=== PATIENT | female | born 1990 | race Caucasian/White ===

== ENCOUNTER → 2016-04-19 | Outpatient (CLI) | payer OTHER ==
[2016-04-19 11:22] LABS: MEAN CORPUSCULAR HEMOGLOBIN 28.4 pg (27.0-33.0); MEAN CORPUSCULAR HGB CONC 33.9 g/dl (32.0-36.5); MEAN CORPUSCULAR VOLUME 83.9 fl (80.0-96.0); RED CELL DISTRIBUTION WIDTH 13.7 % (11.5-14.5)
[2016-04-19 12:10] LABS: ERYTHROCYTE SEDIMENTATION RATE 11 mm/hr (0-20)
[2016-04-19 12:46] LABS: BANDS 1 % (< 11); EOSINOPHILS 1 % (0-5)
== END | disposition home or self-care (01) ==
LOC: M WUC 10:13
PROVIDERS: ATTEND Physician Assistant
DX: I88.9 Nonspecific lymphadenitis, unspecified (principal)

== ENCOUNTER 2016-05-18 13:53 | Emergency (ER) | payer OTHER ==
[2016-05-18 15:16] LABS: MEAN CORPUSCULAR HEMOGLOBIN 28.7 pg (27.0-33.0); MEAN CORPUSCULAR HGB CONC 34.4 g/dl (32.0-36.5); MEAN CORPUSCULAR VOLUME 83.6 fl (80.0-96.0); RED CELL DISTRIBUTION WIDTH 12.4 % (11.5-14.5); WHITE BLOOD COUNT 14.8 K/mm3 (4.0-10.0)
--- NOTE | 2016-05-18 16:15 | REP ---
OB ULTRASOUND: Real-time sonographic evaluation of the gravid uterus is performed utilizing transabdominal technique. There is a single living intrauterine gestation. Estimated gestational age 16 weeks 3 days, EDC 10/30/2016. Today's measurements indicate appropriate growth. BPD 35 mm = 16 weeks 5 days, 61st percentile. HC 130 mm = 16 weeks 4 days, 59th percentile AC 111 mm = 16 weeks 6 days, 64th percentile FL 22 mm = 16 weeks 4 days, 56th percentile HC/AC ratio 1.17, within normal range. Estimated weight 168 grams, at the 59th percentile. Cervix is closed and measures 3.1 cm in length. heart rate 163 beats per minute. Right choroid plexus cyst is noted. stomach, cord insertion, three vessel cord and kidneys are visualized and are grossly unremarkable. position breech. Placenta is anterior and grade 0 with no previa or abruption. Amniotic fluid within normal limits. Signed by Kumar Orta MD 05/19/2016 06:28 P
--- NOTE | 2016-05-18 17:31 | EDDOCDS ---
Physician Documentation [facility] Name: Sharda Monreal Age: 26 yrs Sex: Female : 1990 Arrival Date: 05/18/2016 Time: 13:53 Bed PR Private MD: NO PRIMARY PHYSICIAN, . Disposition: 05/18/16 16:57 Discharged to Home/Self Care. Impression: Threatened , Unspecified infection of urinary tract in . - Condition is Stable. - Discharge Instructions: Threatened Miscarriage, Urinary Tract Infection, Pelvic Rest. - Prescriptions for Macrobid 100 mg Oral Capsule - take 100 milligram by ORAL route every 12 hours for 10 days; 20 capsule. Zofran 4 mg Oral Tablet - take 1 tablet by ORAL route 4 times per day As needed; 10 tablet. - Medication Reconciliation, Local Pharmacy Hours form. - Follow up: Dhruv Peña MD; When: 2 - 3 days; Reason: Recheck today's complaints, Continuance of care. - Problem is new. - Symptoms have improved. Historical: - Allergies: SULFA (SULFONAMIDES); - Home Meds: 1. Vitamin Oral tab 1 tab once daily 2. lorazepam 0.5 mg Oral tab as needed (Last dose: 05/16/2016) - PMHx: Panic Attacks; arthritis in neck; Endometriosis; - PSHx: Laparoscopy; - Social history: Smoking status: Patient states former smoker of tobacco. No barriers to communication noted, The patient speaks fluent Tongan, Speaks appropriately for age. - Family history: Not pertinent. - : The pt / caregiver states he / she is not on anticoagulants. Home medication list is obtained from the patient. - Exposure Risk Screening:: None identified. RELAY ASSOCIATE: 05/18 14:08 LMP 01/24/2016 jo3 Vital Signs: 13:56 BP 139 / 75; Pulse 101; Resp 17; Temp 96.5(O); Pulse Ox 99% on R/A; Weight 54.43 kg / lr2 120 lbs (R); Height 5 ft. 2 in. (157.48 cm) (R); Pain 5/10; 17:26 BP 128 / 84; Pulse 108; Resp 18; Temp 98(T); Pulse Ox 99% on R/A; jb5 13:56 Body Mass Index 21.95 (54.43 kg, 157.48 cm) lr2 MDM: 14:50 Heart Tones ordered. ke 14:50 Undress patient appropriately for examination ordered. ke 14:51 Type & Screen Ordered. EDMS 14:52 Complete Blood Count Ordered. EDMS 14:52 Hcg, Serum Quantitative Ordered. EDMS 14:52 Urinalysis Ordered. EDMS 14:52 Urine Culture Ordered. EDMS 14:57 US OBS SINGEL GEST Ordered. EDMS 16:29 Complete Blood Count Reviewed. ke 16:29 Urinalysis Reviewed. ke 16:29 Hcg, Serum Quantitative Reviewed. ke 16:29 Type & Screen Reviewed. ke 16:42 -RhoGAM Ultra-Filtered Plus 300 mcg IM once ordered. ke 16:42 Draw Rhogam Ordered. EDMS Administered Medications: 17:15 Drug: -RhoGAM Ultra-Filtered Plus 300 mcg [RhoGAM Ultra-Filtered PLUS 1,500 unit (300 jo3 mcg) intramuscular syringe (300 mcg)] Route: IM; Site: left gluteus; Signatures: Dispatcher [employer] EDVincent Vazquez, ER RN ER RN Yumiko OhRN RN ck1 Bela SrinivasanRN RN jo3 The chart was reviewed and I authenticate all verbal orders and agree with the evaluation and treatment provided.Corrections: (The following items were deleted from the chart) 14:57 14:52 1ST TRIMESTER US+US ordered. EDMS EDMS MTDD
--- NOTE | 2016-05-18 17:31 | EDDOCDS ---
Nurse's Notes [facility] Name: Sharda Monreal Age: 26 yrs Sex: Female : 1990 Arrival Date: 05/18/2016 Time: 13:53 Bed PR Private MD: NO PRIMARY PHYSICIAN, . Diagnosis: Threatened ;Unspecified infection of urinary tract in Presentation: 05/18 14:04 Presenting complaint: Patient states: Sharp back pain and some lower abdominal pain jo3 with some light spotting last night that has now resolved. Pt is 16 weeks . Acute neurological deficits are not present. Mechanism of Injury: No Mechanism of Injury. Adult Sepsis Screening: The patient does not have new or worsening altered mentation. Patient's respiratory rate is less than 22. Systolic blood pressure is greater than 100. Patient has a qSOFA score of 0- Negative Sepsis Screen. Suicide/Homicide risk assessment- the patient denies having any suicidal and/or homicidal ideations and does not present with any other emotional, behavioral or mental health complaints. Status: The patient is a dependent. Transition of care: patient was not received from another setting of care. 14:04 Acuity: KARTIK Level 3 jo3 14:04 Method Of Arrival: Walkin/Carried/Asstd jo3 Triage Assessment: 14:08 General: Appears in no apparent distress, comfortable, Behavior is appropriate for age, jo3 cooperative. Pain: Pain currently is 4 out of 10 on a pain scale. At worst was 7 out of 10 on a pain scale. HIV screening NA for this visit Offered previously. Neurological: Level of Consciousness is awake, alert, Oriented to person, place, time. Respiratory: Airway is patent Respiratory effort is even, unlabored. BEEF PUSHER: 14:08 LMP 01/24/2016 jo3 Historical: - Allergies: SULFA (SULFONAMIDES); - Home Meds: 1. Vitamin Oral tab 1 tab once daily 2. lorazepam 0.5 mg Oral tab as needed (Last dose: 05/16/2016) - PMHx: Panic Attacks; arthritis in neck; Endometriosis; - PSHx: Laparoscopy; - Social history: Smoking status: Patient states former smoker of tobacco. No barriers to communication noted, The patient speaks fluent Upper Sorbian, Speaks appropriately for age. - Family history: Not pertinent. - : The pt / caregiver states he / she is not on anticoagulants. Home medication list is obtained from the patient. - Exposure Risk Screening:: None identified. Screenin:28 Screening information is obtained from the patient. Fall risk: No risks identified. ck1 Assistance ADL's: requires no assistance with activities of daily living. Abuse/DV Screen: The patient / caregiver reports he/she is: not in a situation that causes fear, pain or injury. Nutritional screening: No deficits noted. Advance Directives: Currently, there is no health care proxy. home support is adequate. Assessment: 17:29 General: Appears distressed, Behavior is crying. Pain: Location: left lower quadrant ck1 Pain currently is 7 out of 10 on a pain scale. Neurological: Level of Consciousness is awake, alert, obeys commands, Oriented to person, place, time. : Denies vaginal bleeding. Derm: Skin is intact, is healthy with good turgor, Skin is pink, warm & dry. Musculoskeletal: Circulation, motion, and sensation intact Range of motion intact in all extremities. Vital Signs: 13:56 BP 139 / 75; Pulse 101; Resp 17; Temp 96.5(O); Pulse Ox 99% on R/A; Weight 54.43 kg lr2 (R); Height 5 ft. 2 in. (157.48 cm) (R); Pain 5/10; 17:26 BP 128 / 84; Pulse 108; Resp 18; Temp 98(T); Pulse Ox 99% on R/A; jb5 13:56 Body Mass Index 21.95 (54.43 kg, 157.48 cm) lr2 Vitals: 13:56 Log In Time: May 18, 2016 at 13:55. lr2 ED Course: 13:55 Patient visited by Lisa Mclain. lr2 13:55 NO PRIMARY PHYSICIAN, . is Private Physician. lr2 13:55 Patient moved to Waiting lr2 13:55 Patient moved to Pre RCE lr2 14:06 Triage Initiated jo3 14:09 Patient visited by Bela Srinivasan RN. jo3 14:21 Patient visited by Raegan Nolan PCA. jb5 14:21 Patient moved to Triage 1 jb5 14:40 [facility] Brown FNP [facility]. ke 14:41 Patient visited by Vincent Brown FNP. ke 14:41 Patient visited by Vincent Brown FNP. ke 15:05 Complete Blood Count Sent. jo3 15:05 Hcg, Serum Quantitative Sent. jo3 15:05 Type & Screen Sent. jo3 15:05 Urinalysis Sent. jo3 15:05 Urine Culture Sent. jo3 15:08 Patient moved to TR1 jb5 15:11 Patient visited by Raegan Nolan PCA. jb5 15:20 Patient moved to Ultrasound am10 15:38 Patient moved to TR1 am10 15:46 Patient visited by Vincent Brown FNP. ke 16:15 Patient visited by Vincent Brown FNP. ke 16:31 US OBS SINGEL GEST Returned. EDMS 16:41 Patient visited by Vincent Brown FNP. ke 16:44 Patient moved to PR / jo3 16:44 Draw Rhogam Sent. jo3 16:56 Dhruv Peña MD is Referral Physician. ke 17:26 Patient visited by Raegan Nolan PCA. jb5 17:28 The patient / caregiver is instructed regarding the plan of care and ED course. ck1 17:29 No IV's were initiated during this patient's visit. No procedures done that require ck1 assistance. Administered Medications: 17:15 Drug: -RhoGAM Ultra-Filtered Plus 300 mcg [RhoGAM Ultra-Filtered PLUS 1,500 unit (300 jo3 mcg) intramuscular syringe (300 mcg)] Route: IM; Site: left gluteus; Order Results: Lab Order: Complete Blood Count; SPEC'M 05/18/16 15:04 Test: WHITE BLOOD COUNT; Value: 14.8; Range: 4.0-10.0; Abnormal: Above high normal; Units: K/mm3; Status: F Test: RED BLOOD COUNT; Value: 4.34; Range: 4.00-5.40; Units: M/mm3; Status: F Test: HEMOGLOBIN; Value: 12.5; Range: 12.0-16.0; Units: g/dl; Status: F Test: HEMATOCRIT; Value: 36.3; Range: 36.0-47.0; Units: %; Status: F Test: MEAN CORPUSCULAR VOLUME; Value: 83.6; Range: 80.0-96.0; Units: fl; Status: F Test: MEAN CORPUSCULAR HEMOGLOBIN; Value: 28.7; Range: 27.0-33.0; Units: pg; Status: F Test: MEAN CORPUSCULAR HGB CONC; Value: 34.4; Range: 32.0-36.5; Units: g/dl; Status: F Test: RED CELL DISTRIBUTION WIDTH; Value: 12.4; Range: 11.5-14.5; Units: %; Status: F Test: PLATELET COUNT, AUTOMATED; Value: 199; Range: 150-450; Units: k/mm3; Status: F Lab Order: Hcg, Serum Quantitative; [facility] 05/18/16 15:04 Test: HCG, SERUM QUANTITATIVE; Value: 39202; Units: MIU/ML; Status: F Test Note: ; GESTATIONAL AGE APPROXIMATE HCG RANGE (MIU/ML) 0.2-1 WEEK 5-50 1-2 WEEKS 50-500 2-3 WEEKS 100-5,000 3-4 WEEKS 500-10,000 4-5 WEEKS 1,000-50,000 5-6 WEEKS 10,000-100,000 6-8 WEEKS 15,000-200,000 2-3 MONTHS 10,000-100,000 NON FEMALES LESS THAN 3.0 Patient samples may contain human heterophilic antibodies that could react with immunoassays to give falsely elevated or depressed results. This assay has been designed to minimize interference from heterophilic antibodies. Elevated hCG levels have also been associated with trophoblastic disease and nontrophoblastic neoplasms. The possibility of having these diseases should be considered before a diagnosis of is made. This test is not intended for use as a surrogate marker for aiding in the diagnosis or monitoring the treatment of cancer patients. Siemens Phoenix methodology. Lab Order: Type & Screen; [facility] 05/18/16 15:04 Test: BLOOD TYPE; Value: O NEG; Status: F Test: AB SCREEN (INDIRECT BENEDICTO)VIS; Value: NEGATIVE; Status: F Lab Order: Urinalysis; [facility] 05/18/16 14:54 Test: APPEARANCE, URINE; Value: CLEAR; Range: CLEAR; Status: F Test: COLOR, URINE; Value: YELLOW; Range: YELLOW; Status: F Test: PH,URINE; Value: 6.0; Range: 5.0-9.0; Units: UNITS; Status: F Test: SPECIFIC GRAVITY URINE AUTO; Value: 1.004; Range: 1.002-1.035; Status: F Test: PROTEIN, URINE AUTO; Value: NEGATIVE; Range: NEGATIVE; Units: mg/dL; Status: F Test: GLUCOSE, URINE (UA) AUTO; Value: NEGATIVE; Range: NEGATIVE; Units: mg/dL; Status: F Test: KETONE, URINE AUTO; Value: NEGATIVE; Range: NEGATIVE; Units: mg/dL; Status: F Test: UROBILINOGEN, URINE AUTO; Value: 0.2; Range: 0.0-2.0; Units: mg/dL; Status: F Test: BILIRUBIN, URINE AUTO; Value: NEGATIVE; Range: NEGATIVE; Status: F Test: NITRITE, URINE AUTO; Value: POSITIVE; Range: NEGATIVE; Status: F Test: LEUKOCYTE ESTERASE, URINE AUTO; Value: NEGATIVE; Range: NEGATIVE; Status: F Test: BLOOD, URINE BLOOD; Value: NEGATIVE; Range: NEGATIVE; Status: F Test: WBC, URINE AUTO; Value: 5; Range: 0-3; Abnormal: Above high normal; Units: /HPF; Status: F Test: RBC, URINE AUTO; Value: 3; Range: 0-3; Units: /HPF; Status: F Test: BACTERIA, URINE AUTO; Value: 3+; Range: NEGATIVE; Abnormal: Above high normal; Status: F Test: SQUAMOUS EPITHELIAL CELL UR AU; Value: 0; Range: 0-6; Units: /HPF; Status: F Test: MUCUS, URINE; Value: SMALL; Range: NEGATIVE; Status: F Test: HYALINE CAST, URINE AUTO; Value: 0; Range: 0-1; Units: /LPF; Status: F Radiology Order: US OBS SINGEL GEST Test: US OBS SINGEL GEST REASON FOR EXAMINATION: Bleeding; OB ULTRASOUND:; ; Real-time sonographic evaluation of the gravid uterus is performed utilizing; transabdominal technique.; ; There is a single living intrauterine gestation. Estimated gestational age 16; weeks 3 days, EDC 10/30/2016. Today's measurements indicate appropriate growth.; ; BPD 35 mm = 16 weeks 5 days, 61st percentile.; HC 130 mm = 16 weeks 4 days, 59th percentile; AC 111 mm = 16 weeks 6 days, 64th percentile; FL 22 mm = 16 weeks 4 days, 56th percentile; ; HC/AC ratio 1.17, within normal range. Estimated weight 168 grams, at the; 59th percentile. Cervix is closed and measures 3.1 cm in length. heart rate; 163 beats per minute. Right choroid plexus cyst is noted. stomach, cord; insertion, three vessel cord and kidneys are visualized and are grossly; unremarkable. position breech. Placenta is anterior and grade 0 with no; previa or abruption. Amniotic fluid within normal limits.; ; ; ; Unreviewed; Outcome: 16:57 Discharge ordered by Provider. 17:28 Discharge Assessment: Patient awake, alert and oriented x 3. No cognitive and/or ck1 functional deficits noted. Patient verbalized understanding of disposition instructions. patient administered narcotics - no. The following High Risk Discharge criteria are identified: None. Discharged to home ambulatory. Condition: stable. Discharge instructions given to patient, Instructed on discharge instructions, follow up and referral plans. medication usage, Demonstrated understanding of instructions, medications, Pt was receptive of discharge instructions/ teaching. Prescriptions given X 2. Ultrasound Study completed. Property :Personal belongings accompany Pt. 17:29 Patient left the ED. ck1 Signatures: Dispatcher [employer] EDMS Vincent Brown, DETECTIVE CHIEF DETECTIVE CHIEF Yumiko OhRN RN ck1 Raegan Nolan, [employer] SENIOR PARTNER jb5 Bela SrinivasanRN RN neetu3 Alecia Rojo Laura lr2 MTDD
--- NOTE | 2016-05-20 18:31 | EDDOCDS ---
Nurse's Notes [facility] Name: Sharda Monreal Age: 26 yrs Sex: Female : 1990 Arrival Date: 05/18/2016 Time: 13:53 Bed PR Private MD: NO PRIMARY PHYSICIAN, . Diagnosis: Threatened ;Unspecified infection of urinary tract in Presentation: 05/18 14:04 Presenting complaint: Patient states: Sharp back pain and some lower abdominal pain jo3 with some light spotting last night that has now resolved. Pt is 16 weeks . Acute neurological deficits are not present. Mechanism of Injury: No Mechanism of Injury. Adult Sepsis Screening: The patient does not have new or worsening altered mentation. Patient's respiratory rate is less than 22. Systolic blood pressure is greater than 100. Patient has a qSOFA score of 0- Negative Sepsis Screen. Suicide/Homicide risk assessment- the patient denies having any suicidal and/or homicidal ideations and does not present with any other emotional, behavioral or mental health complaints. Status: The patient is a dependent. Transition of care: patient was not received from another setting of care. 14:04 Acuity: KARTIK Level 3 jo3 14:04 Method Of Arrival: Walkin/Carried/Asstd jo3 Triage Assessment: 14:08 General: Appears in no apparent distress, comfortable, Behavior is appropriate for age, jo3 cooperative. Pain: Pain currently is 4 out of 10 on a pain scale. At worst was 7 out of 10 on a pain scale. HIV screening NA for this visit Offered previously. Neurological: Level of Consciousness is awake, alert, Oriented to person, place, time. Respiratory: Airway is patent Respiratory effort is even, unlabored. 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 Vitamin Oral tab 1 tab once daily 2. lorazepam 0.5 mg Oral tab as needed (Last dose: 05/16/2016) - PMHx: Panic Attacks; arthritis in neck; Endometriosis; - PSHx: Laparoscopy; - Social history: Smoking status: Patient states former smoker of tobacco. No barriers to communication noted, The patient speaks fluent Kazakh, Speaks appropriately for age. - Family history: Not pertinent. - : The pt / caregiver states he / she is not on anticoagulants. Home medication list is obtained from the patient. - Exposure Risk Screening:: None identified. Screenin:28 Screening information is obtained from the patient. Fall risk: No risks identified. ck1 Assistance ADL's: requires no assistance with activities of daily living. Abuse/DV Screen: The patient / caregiver reports he/she is: not in a situation that causes fear, pain or injury. Nutritional screening: No deficits noted. Advance Directives: Currently, there is no health care proxy. home support is adequate. Assessment: 17:29 General: Appears distressed, Behavior is crying. Pain: Location: left lower quadrant ck1 Pain currently is 7 out of 10 on a pain scale. Neurological: Level of Consciousness is awake, alert, obeys commands, Oriented to person, place, time. : Denies vaginal bleeding. Derm: Skin is intact, is healthy with good turgor, Skin is pink, warm & dry. Musculoskeletal: Circulation, motion, and sensation intact Range of motion intact in all extremities. Vital Signs: 13:56 BP 139 / 75; Pulse 101; Resp 17; Temp 96.5(O); Pulse Ox 99% on R/A; Weight 54.43 kg lr2 (R); Height 5 ft. 2 in. (157.48 cm) (R); Pain 5/10; 17:26 BP 128 / 84; Pulse 108; Resp 18; Temp 98(T); Pulse Ox 99% on R/A; jb5 13:56 Body Mass Index 21.95 (54.43 kg, 157.48 cm) lr2 Vitals: 13:56 Log In Time: May 18, 2016 at 13:55. lr2 ED Course: 13:55 Patient visited by Lisa Mclain. lr2 13:55 NO PRIMARY PHYSICIAN, . is Private Physician. lr2 13:55 Patient moved to Waiting lr2 13:55 Patient moved to Pre RCE lr2 14:06 Triage Initiated jo3 14:09 Patient visited by Bela Srinivasan RN. jo3 14:21 Patient visited by Raegan Nolan PCA. jb5 14:21 Patient moved to Triage 1 jb5 14:40 [facility] FNP is [facility]. ke 14:41 Patient visited by Vincent Brown FNP. ke 14:41 Patient visited by Vincent Brown FNP. ke 15:05 Complete Blood Count Sent. jo3 15:05 Hcg, Serum Quantitative Sent. jo3 15:05 Type & Screen Sent. jo3 15:05 Urinalysis Sent. jo3 15:05 Urine Culture Sent. jo3 15:08 Patient moved to TR1 jb5 15:11 Patient visited by Raegan Nolan PCA. jb5 15:20 Patient moved to Ultrasound am10 15:38 Patient moved to TR1 am10 15:46 Patient visited by Vincent Brown FNP. ke 16:15 Patient visited by Vincent Brown FNP. ke 16:31 US OBS SINGJORGE GEST Returned. EDMS 16:41 Patient visited by Vincent Brwon FNP. ke 16:44 Patient moved to PR / jo3 16:44 Draw Rhogam Sent. jo3 16:56 Dhruv Peña MD is Referral Physician. ke 17:26 Patient visited by Raegan Nolan PCA. jb5 17:28 The patient / caregiver is instructed regarding the plan of care and ED course. ck1 17:29 No IV's were initiated during this patient's visit. No procedures done that require ck1 assistance. 05/19 10:16 T-Sheet-- Draft Copy was scanned into [employer] and attached to record. gb Administered Medications: 05/18 17:15 Drug: -RhoGAM Ultra-Filtered Plus 300 mcg [RhoGAM Ultra-Filtered PLUS 1,500 unit (300 jo3 mcg) intramuscular syringe (300 mcg)] Route: IM; Site: left gluteus; Order Results: Lab Order: Complete Blood Count; SPEC'M 05/18/16 15:04 Test: WHITE BLOOD COUNT; Value: 14.8; Range: 4.0-10.0; Abnormal: Above high normal; Units: K/mm3; Status: F Test: RED BLOOD COUNT; Value: 4.34; Range: 4.00-5.40; Units: M/mm3; Status: F Test: HEMOGLOBIN; Value: 12.5; Range: 12.0-16.0; Units: g/dl; Status: F Test: HEMATOCRIT; Value: 36.3; Range: 36.0-47.0; Units: %; Status: F Test: MEAN CORPUSCULAR VOLUME; Value: 83.6; Range: 80.0-96.0; Units: fl; Status: F Test: MEAN CORPUSCULAR HEMOGLOBIN; Value: 28.7; Range: 27.0-33.0; Units: pg; Status: F Test: MEAN CORPUSCULAR HGB CONC; Value: 34.4; Range: 32.0-36.5; Units: g/dl; Status: F Test: RED CELL DISTRIBUTION WIDTH; Value: 12.4; Range: 11.5-14.5; Units: %; Status: F Test: PLATELET COUNT, AUTOMATED; Value: 199; Range: 150-450; Units: k/mm3; Status: F Lab Order: Hcg, Serum Quantitative; SPEC' 05/18/16 15:04 Test: HCG, SERUM QUANTITATIVE; Value: [id number]; Units: MIU/ML; Status: F Test Note: ; GESTATIONAL AGE APPROXIMATE HCG RANGE (MIU/ML) 0.2-1 WEEK 5-50 1-2 WEEKS 50-500 2-3 WEEKS 100-5,000 3-4 WEEKS 500-10,000 4-5 WEEKS 1,000-50,000 5-6 WEEKS 10,000-100,000 6-8 WEEKS 15,000-200,000 2-3 MONTHS 10,000-100,000 NON FEMALES LESS THAN 3.0 Patient samples may contain human heterophilic antibodies that could react with immunoassays to give falsely elevated or depressed results. This assay has been designed to minimize interference from heterophilic antibodies. Elevated hCG levels have also been associated with trophoblastic disease and nontrophoblastic neoplasms. The possibility of having these diseases should be considered before a diagnosis of is made. This test is not intended for use as a surrogate marker for aiding in the diagnosis or monitoring the treatment of cancer patients. [employer] methodology. Lab Order: Type & Screen; SPEC 05/18/16 15:04 Test: BLOOD TYPE; Value: O NEG; Status: F Test: AB SCREEN (INDIRECT BENEDICTO)VIS; Value: NEGATIVE; Status: F Lab Order: Urinalysis; [facility]' 05/18/16 14:54 Test: APPEARANCE, URINE; Value: CLEAR; Range: CLEAR; Status: F Test: COLOR, URINE; Value: YELLOW; Range: YELLOW; Status: F Test: PH,URINE; Value: 6.0; Range: 5.0-9.0; Units: UNITS; Status: F Test: SPECIFIC GRAVITY URINE AUTO; Value: 1.004; Range: 1.002-1.035; Status: F Test: PROTEIN, URINE AUTO; Value: NEGATIVE; Range: NEGATIVE; Units: mg/dL; Status: F Test: GLUCOSE, URINE (UA) AUTO; Value: NEGATIVE; Range: NEGATIVE; Units: mg/dL; Status: F Test: KETONE, URINE AUTO; Value: NEGATIVE; Range: NEGATIVE; Units: mg/dL; Status: F Test: UROBILINOGEN, URINE AUTO; Value: 0.2; Range: 0.0-2.0; Units: mg/dL; Status: F Test: BILIRUBIN, URINE AUTO; Value: NEGATIVE; Range: NEGATIVE; Status: F Test: NITRITE, URINE AUTO; Value: POSITIVE; Range: NEGATIVE; Status: F Test: LEUKOCYTE ESTERASE, URINE AUTO; Value: NEGATIVE; Range: NEGATIVE; Status: F Test: BLOOD, URINE BLOOD; Value: NEGATIVE; Range: NEGATIVE; Status: F Test: WBC, URINE AUTO; Value: 5; Range: 0-3; Abnormal: Above high normal; Units: /HPF; Status: F Test: RBC, URINE AUTO; Value: 3; Range: 0-3; Units: /HPF; Status: F Test: BACTERIA, URINE AUTO; Value: 3+; Range: NEGATIVE; Abnormal: Above high normal; Status: F Test: SQUAMOUS EPITHELIAL CELL UR AU; Value: 0; Range: 0-6; Units: /HPF; Status: F Test: MUCUS, URINE; Value: SMALL; Range: NEGATIVE; Status: F Test: HYALINE CAST, URINE AUTO; Value: 0; Range: 0-1; Units: /LPF; Status: F Lab Order: Urine Culture; SPEC'M 05/18/16 14:54 Test: URINE CULTURE; Value: <EXTERNAL COMMENT eCWMed> FULL REPORT IN LAB NOTES (eCW and Medent).; Status: F Test: URINE CULTURE; Value: ORGANISM 1: ESCHERICHIA COLI; Status: F Test: URINE CULTURE; Value: ESCHERICHIA COLI; Status: F Test: URINE CULTURE; Value: COLONY COUNT CFU/ml >100,000; Status: F Test: URINE CULTURE; Value: GRAM NEG SENSI - VITEK 80; Status: F Test: URINE CULTURE; Value: Method: VIT2; Status: F Test: URINE CULTURE; Value: EXTD BRD SPCTRM BETA LACTAMASE -; Status: F Test: URINE CULTURE; Value: TRIMETHOPRIM/SULFAMETHOXAZOLE >=320 R; Status: F Test: URINE CULTURE; Value: AMPICILLIN 8 S; Status: F Test: URINE CULTURE; Value: GENTAMICIN <=1 S; Status: F Test: URINE CULTURE; Value: NITROFURANTOIN <=16 S; Status: F Test: URINE CULTURE; Value: CEFAZOLIN <=4 S; Status: F Test: URINE CULTURE; Value: LEVOFLOXACIN >=8 R; Status: F Test: URINE CULTURE; Value: TOBRAMYCIN <=1 S; Status: F Test: URINE CULTURE; Value: CEFTRIAXONE <=1 S; Status: F Test: URINE CULTURE; Value: CEFTAZIDIME <=1 S; Status: F Test: URINE CULTURE; Value: AMPICILLIN/SULBACTAM 4 S; Status: F Test: URINE CULTURE; Value: PIPERACILLIN/TAZOBACTAM <=4 S; Status: F Test: URINE CULTURE; Value: AZTREONAM <=1 S; Status: F Test: URINE CULTURE; Value: ERTAPENEM <=0.5 S; Status: F Test: URINE CULTURE; Value: MEROPENEM <=0.25 S; Status: F Test: URINE CULTURE; Value: TIGECYCLINE <=0.5 S; Status: F Test: URINE CULTURE; Value: CEFEPIME <=1 S; Status: F Radiology Order: US OBS SINGEL GEST Test: US OBS SINGEL GEST REASON FOR EXAMINATION: Bleeding; OB ULTRASOUND:; ; Real-time sonographic evaluation of the gravid uterus is performed utilizing; transabdominal technique.; ; There is a single living intrauterine gestation. Estimated gestational age 16; weeks 3 days, EDC 10/30/2016. Today's measurements indicate appropriate growth.; ; BPD 35 mm = 16 weeks 5 days, 61st percentile.; ; HC 130 mm = 16 weeks 4 days, 59th percentile; ; AC 111 mm = 16 weeks 6 days, 64th percentile; ; FL 22 mm = 16 weeks 4 days, 56th percentile; ; HC/AC ratio 1.17, within normal range. Estimated weight 168 grams, at the; 59th percentile. Cervix is closed and measures 3.1 cm in length. heart rate; 163 beats per minute. Right choroid plexus cyst is noted. stomach, cord; insertion, three vessel cord and kidneys are visualized and are grossly; unremarkable. position breech. Placenta is anterior and grade 0 with no; previa or abruption. Amniotic fluid within normal limits.; ; ; Signed by; Kumar Orta MD 05/19/2016 06:28 P; Outcome: 16:57 Discharge ordered by Provider. 17:28 Discharge Assessment: Patient awake, alert and oriented x 3. No cognitive and/or ck1 functional deficits noted. Patient verbalized understanding of disposition instructions. patient administered narcotics - no. The following High Risk Discharge criteria are identified: None. Discharged to home ambulatory. Condition: stable. Discharge instructions given to patient, Instructed on discharge instructions, follow up and referral plans. medication usage, Demonstrated understanding of instructions, medications, Pt was receptive of discharge instructions/ teaching. Prescriptions given X 2. Ultrasound Study completed. Property :Personal belongings accompany Pt. 17:29 Patient left the ED. ck05/20 10:13 urine culture reviewed, pt treated appropriately.:. [facility] Signatures: Dispatcher [employer] EDMS Kati Lucas, RN RN Leola Baxter, Reg Reg Vincent Summers, DELIVERER OUTSIDE DELIVERER OUTSIDE Yumiko Oh RN RN ck1 Raegan Nolan, CAREER AND TRANSITION TEACHER CAREER AND TRANSITION TEACHER alivia5 Bela Srinivasan RN RN Alecia Zhao Laura lr2 Chart Complete MTDD
--- NOTE | 2016-05-20 18:31 | EDDOCDS ---
Physician Documentation [facility] Name: Sharda Monreal Age: 26 yrs Sex: Female : 1990 Arrival Date: 05/18/2016 Time: 13:53 Bed PR Private MD: NO PRIMARY PHYSICIAN, . Disposition: 05/18/16 16:57 Discharged to Home/Self Care. Impression: Threatened , Unspecified infection of urinary tract in . - Condition is Stable. - Discharge Instructions: Threatened Miscarriage, Urinary Tract Infection, Pelvic Rest. - Prescriptions for Macrobid 100 mg Oral Capsule - take 100 milligram by ORAL route every 12 hours for 10 days; 20 capsule. Zofran 4 mg Oral Tablet - take 1 tablet by ORAL route 4 times per day As needed; 10 tablet. - Medication Reconciliation, Local Pharmacy Hours form. - Follow up: Dhruv Peña MD; When: 2 - 3 days; Reason: Recheck today's complaints, Continuance of care. - Problem is new. - Symptoms have improved. Historical: - Allergies: SULFA (SULFONAMIDES); - Home Meds: 1. Vitamin Oral tab 1 tab once daily 2. lorazepam 0.5 mg Oral tab as needed (Last dose: 05/16/2016) - PMHx: Panic Attacks; arthritis in neck; Endometriosis; - PSHx: Laparoscopy; - Social history: Smoking status: Patient states former smoker of tobacco. No barriers to communication noted, The patient speaks fluent Austrian, Speaks appropriately for age. - Family history: Not pertinent. - : The pt / caregiver states he / she is not on anticoagulants. Home medication list is obtained from the patient. - Exposure Risk Screening:: None identified. 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 2 in. (157.48 cm) (R); Pain 5/10; 17:26 BP 128 / 84; Pulse 108; Resp 18; Temp 98(T); Pulse Ox 99% on R/A; jb5 13:56 Body Mass Index 21.95 (54.43 kg, 157.48 cm) lr2 MDM: 14:50 Heart Tones ordered. ke 14:50 Undress patient appropriately for examination ordered. ke 14:51 Type & Screen Ordered. EDMS 14:52 Complete Blood Count Ordered. EDMS 14:52 Hcg, Serum Quantitative Ordered. EDMS 14:52 Urinalysis Ordered. EDMS 14:52 Urine Culture Ordered. EDMS 14:57 US OBS SINGEL GEST Ordered. EDMS 16:29 Complete Blood Count Reviewed. ke 16:29 Urinalysis Reviewed. ke 16:29 Hcg, Serum Quantitative Reviewed. ke 16:29 Type & Screen Reviewed. ke 16:42 -RhoGAM Ultra-Filtered Plus 300 mcg IM once ordered. ke 16:42 Draw Rhogam Ordered. EDMS 05/19 10:16 T-Sheet-- Draft Copy was scanned into [employer] and attached to record. gb Administered Medications: 05/18 17:15 Drug: -RhoGAM Ultra-Filtered Plus 300 mcg [RhoGAM Ultra-Filtered PLUS 1,500 unit (300 jo3 mcg) intramuscular syringe (300 mcg)] Route: IM; Site: left gluteus; Signatures: Dispatcher [employer] EDOH Leola Bragg, Reg Reg Vincent Summers, LAST REPAIRER LAST REPAIRER Yumiko OhRN RN ck1 Bela SrinivasanRN RN jo3 The chart was reviewed and I authenticate all verbal orders and agree with the evaluation and treatment provided.Corrections: (The following items were deleted from the chart) 14:57 14:52 1ST TRIMESTER US+US ordered. EDOH EDMS Attachments: 05/19 10:16 T-Sheet-- Draft Copy gb Chart Complete MTDD
--- NOTE | 2016-05-20 18:31 | EDDOCDS ---
Physician Documentation [facility] Name: Sharda Monreal Age: 26 yrs Sex: Female : 1990 Arrival Date: 05/18/2016 Time: 13:53 Bed PR Private MD: NO PRIMARY PHYSICIAN, . Disposition: 05/18/16 16:57 Discharged to Home/Self Care. Impression: Threatened , Unspecified infection of urinary tract in . - Condition is Stable. - Discharge Instructions: Threatened Miscarriage, Urinary Tract Infection, Pelvic Rest. - Prescriptions for Macrobid 100 mg Oral Capsule - take 100 milligram by ORAL route every 12 hours for 10 days; 20 capsule. Zofran 4 mg Oral Tablet - take 1 tablet by ORAL route 4 times per day As needed; 10 tablet. - Medication Reconciliation, Local Pharmacy Hours form. - Follow up: Dhruv Peña MD; When: 2 - 3 days; Reason: Recheck today's complaints, Continuance of care. - Problem is new. - Symptoms have improved. Historical: - Allergies: SULFA (SULFONAMIDES); - Home Meds: 1. Vitamin Oral tab 1 tab once daily 2. lorazepam 0.5 mg Oral tab as needed (Last dose: 05/16/2016) - PMHx: Panic Attacks; arthritis in neck; Endometriosis; - PSHx: Laparoscopy; - Social history: Smoking status: Patient states former smoker of tobacco. No barriers to communication noted, The patient speaks fluent Kittitian, Speaks appropriately for age. - Family history: Not pertinent. - : The pt / caregiver states he / she is not on anticoagulants. Home medication list is obtained from the patient. - Exposure Risk Screening:: None identified. 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 2 in. (157.48 cm) (R); Pain 5/10; 17:26 BP 128 / 84; Pulse 108; Resp 18; Temp 98(T); Pulse Ox 99% on R/A; jb5 13:56 Body Mass Index 21.95 (54.43 kg, 157.48 cm) lr2 MDM: 14:50 Heart Tones ordered. ke 14:50 Undress patient appropriately for examination ordered. ke 14:51 Type & Screen Ordered. EDMS 14:52 Complete Blood Count Ordered. EDMS 14:52 Hcg, Serum Quantitative Ordered. EDMS 14:52 Urinalysis Ordered. EDMS 14:52 Urine Culture Ordered. EDMS 14:57 US OBS SINGEL GEST Ordered. EDMS 16:29 Complete Blood Count Reviewed. ke 16:29 Urinalysis Reviewed. ke 16:29 Hcg, Serum Quantitative Reviewed. ke 16:29 Type & Screen Reviewed. ke 16:42 -RhoGAM Ultra-Filtered Plus 300 mcg IM once ordered. ke 16:42 Draw Rhogam Ordered. EDMS 05/19 10:16 T-Sheet-- Draft Copy was scanned into [email or web address] and attached to record. gb Administered Medications: 05/18 17:15 Drug: -RhoGAM Ultra-Filtered Plus 300 mcg [RhoGAM Ultra-Filtered PLUS 1,500 unit (300 jo3 mcg) intramuscular syringe (300 mcg)] Route: IM; Site: left gluteus; Signatures: Dispatcher [employer] EDNH Leola Bragg, Reg Reg Vincent Summers, CROP OR GRAIN FARMWORKER CROP OR GRAIN FARMWORKER Yumiko OhRN RN ck1 Bela SrinivasanRN RN jo3 The chart was reviewed and I authenticate all verbal orders and agree with the evaluation and treatment provided.Corrections: (The following items were deleted from the chart) 14:57 14:52 1ST TRIMESTER US+US ordered. EDNH EDMS Attachments: 05/19 10:16 T-Sheet-- Draft Copy gb Chart Complete MTDD
== END 2016-05-18 17:29 | disposition home or self-care (01) ==
LOC: M ED 13:53
DX: O20.0 Threatened abortion (principal); Z3A.16 16 weeks gestation of pregnancy; O99.342 Other mental disorders complicating pregnancy, second trimester; O99.89 Other specified diseases and conditions complicating pregnancy, childbirth and the puerperium; N80.9 Endometriosis, unspecified; M19.90 Unspecified osteoarthritis, unspecified site; Z87.891 Personal history of nicotine dependence; Z79.899 Other long term (current) drug therapy; Z88.2 Allergy status to sulfonamides; O26.892 Other specified pregnancy related conditions, second trimester
CPT/HCPCS: 36415; 76811; 81001; 84702; 85027; 86850; 86900; 86901; 87088; 87186; 96372; 99284; J2790

== ENCOUNTER → 2016-06-13 | Outpatient (REF) | payer OTHER | LOC: M LAB REF 12:56 | PROVIDERS: ATTEND Advanced Practice Midwife | DX: Z34.82 Encounter for supervision of other normal pregnancy, second trimester (principal); Z36 Encounter for antenatal screening of mother; Z3A.00 Weeks of gestation of pregnancy not specified ==

== ENCOUNTER → 2016-07-12 | Outpatient (REF) | payer OTHER ==
[2016-07-17 14:24] LABS: GC Methadone 1955 ng/mL (Cutoff=100)
== END ==
LOC: M LAB REF 13:07
PROVIDERS: ATTEND Obstetrics & Gynecology
DX: Z34.82 Encounter for supervision of other normal pregnancy, second trimester (principal); Z36 Encounter for antenatal screening of mother; Z3A.00 Weeks of gestation of pregnancy not specified
CPT/HCPCS: 80306; G0480

== ENCOUNTER → 2016-07-31 | Outpatient (CLI) | payer OTHER ==
[2016-07-31 12:54] LABS: MEAN CORPUSCULAR HEMOGLOBIN 29.5 pg (27.0-33.0); MEAN CORPUSCULAR HGB CONC 34.6 g/dl (32.0-36.5); MEAN CORPUSCULAR VOLUME 85.3 fl (80.0-96.0); RED CELL DISTRIBUTION WIDTH 13.2 % (11.5-14.5)
== END ==
LOC: M LAB 10:40
PROVIDERS: ATTEND Obstetrics & Gynecology
DX: Z34.82 Encounter for supervision of other normal pregnancy, second trimester (principal)

== ENCOUNTER → 2016-08-08 | Outpatient (CLI) | payer OTHER ==
--- NOTE | 2016-08-09 04:35 | REP ---
Clinical: Anatomical evaluation. Comparison: 06/02/2016 . Findings: Examination demonstrates a single live intrauterine in cephalic presentation. motion is identified by technologist. Placenta is noted anteriorly and grade one without evidence for placenta previa or abruption. Amniotic fluid volume is subjectively normal. Cervix measures 3.7 cm in length and appears closed. No evidence for nuchal cord. Gestational age by LMP 28 weeks 1 day with CHANNING 10/30/2016 . FHR equals 127 beats per minute. Amniotic fluid index equals 9.3 cm (9.4 - 22.8). Estimated weight 1069 grams (26 percentile). Anatomical assessment demonstrates normal structures including cranium, choroid plexus, cavum, facial features, lungs, four-chamber heart/right ventricular outflow tract, diaphragm, stomach, cord insertion/three-vessel cord, kidneys/bladder, and spine. Limited evaluation of the cerebellum/posterior fossa, left cardiac ventricular outflow tract, and extremities. Impression: Single live intrauterine in cephalic presentation demonstrating appropriate interval growth. Anatomical limitations as noted above. Remainder of the anatomical assessment is complete and normal. Signed by Richard Bryant MD 08/09/2016 04:26 A
== END ==
LOC: M RAD 11:05
PROVIDERS: ATTEND Obstetrics & Gynecology
DX: Z36 Encounter for antenatal screening of mother (principal)

== ENCOUNTER → 2016-08-09 | Outpatient (REF) | payer OTHER | LOC: M LAB REF 12:53 | PROVIDERS: ATTEND Advanced Practice Midwife | DX: Z34.83 Encounter for supervision of other normal pregnancy, third trimester (principal) ==

== ENCOUNTER → 2016-08-24 | Outpatient (REF) | payer OTHER | LOC: M LAB REF 13:01 | PROVIDERS: ATTEND Obstetrics & Gynecology | DX: Z34.83 Encounter for supervision of other normal pregnancy, third trimester (principal); Z36 Encounter for antenatal screening of mother; Z3A.00 Weeks of gestation of pregnancy not specified ==

== ENCOUNTER → 2016-09-18 | Outpatient (CLI) | payer OTHER | LOC: M RAD 11:17 | PROVIDERS: ATTEND Obstetrics & Gynecology | DX: O26.893 Other specified pregnancy related conditions, third trimester (principal); Z36 Encounter for antenatal screening of mother; Z3A.32 32 weeks gestation of pregnancy ==

== ENCOUNTER → 2016-10-05 | Outpatient (REF) | payer OTHER ==
[~2016-10-05] MED LIST: COLA100C5 PO; DIBU0.5O TOP; MACR100C43 PO; METH10CO PO; MOTR200T44 PO; PRENTAB9 PO; SUBO8MIS SL; TUMS500C PO; TYLE325T5 PO
== END ==
LOC: M LAB REF 16:33
PROVIDERS: ATTEND Physician Assistant
DX: J02.9 Acute pharyngitis, unspecified (principal)

== ENCOUNTER → 2016-10-06 | Outpatient (CLI) | payer OTHER ==
--- NOTE | 2016-10-06 12:31 | REP ---
Clinical: Growth evaluation. Comparison: 09/18/2016 . Findings: Examination demonstrates a single live intrauterine in cephalic presentation. motion is identified by technologist. Placenta is noted anteriorly and grade zero without evidence for placenta previa or abruption. Amniotic fluid volume is normal. No evidence for nuchal cord. Gestational age by LMP 36 weeks 4-day with CHANNING 10/30/2016 . Gestational age by current measurements 34 weeks 6 days with CHANNING 11/11/2016 . FHR equals 124 beats per minute. BPD 8.4 cm 34 weeks 0 days HC 31.0 cm 34 weeks 5 days AC 32.1 cm 36 weeks 0 days FL 7.0 cm 35 weeks 6 days Estimated weight 2723 grams ( 36th percentile). Amniotic fluid index = 12.3 cm (7.6 - 24.6) Impression: Single live advanced gestation in cephalic presentation demonstrating appropriate interval growth. Amniotic fluid volume and estimated weight are within normal range.
== END ==
LOC: M WHC 10:54
PROVIDERS: ATTEND Obstetrics & Gynecology
DX: O26.893 Other specified pregnancy related conditions, third trimester (principal); Z36 Encounter for antenatal screening of mother; Z3A.34 34 weeks gestation of pregnancy

== ENCOUNTER → 2016-10-10 | Outpatient (REF) | payer OTHER | LOC: M LAB REF 17:29 | PROVIDERS: ATTEND Obstetrics & Gynecology | DX: Z34.83 Encounter for supervision of other normal pregnancy, third trimester (principal); Z36 Encounter for antenatal screening of mother; Z3A.00 Weeks of gestation of pregnancy not specified ==

== ENCOUNTER 2016-11-06 11:06 | Inpatient (IN) | payer OTHER ==
[~2016-11-06] VITALS: Ht 157.5 cm; Wt 64.0 kg
[2016-11-06] VITALS (29 sets, daily range): BP systolic 110–152; BP diastolic 55–99
[2016-11-06] MEDS ORDERED: TUMS500C PO (11:16)
[2016-11-06] MEDS ORDERED: MACR100C43 PO (11:16)
[2016-11-06] MEDS ORDERED: METH10CO PO (11:17)
[2016-11-06] MEDS ORDERED: PRENTAB9 PO (11:17)
[2016-11-06] MEDS ORDERED: LACTATED RINGER'S 1000 ML IV STA (12:05)
--- NOTE | 2016-11-06 12:10 | HPE ---
DATE OF ADMISSION: 11/06/2016 CHIEF COMPLAINT: Induction of labor. HISTORY OF PRESENT ILLNESS: The patient is a 26-year-old, 1, para 0-0-0-0 at 41 weeks gestation with an estimated due date of 10/30/2016 by last menstrual period. She presents with weak uterine contractions about every 15 to 20 minutes that last 30 seconds and started last night. She denies any leakage of fluid, bleeding, discharge, and states that her last intercourse was last week. She is feeling baby move. LABORATORIES: Blood type is O negative. Her last RhoGam shot was 08/09/2016. She is Group B streptococcus (GBS) negative, Rubella immune, HIV negative, Gonorrhea and Chlamydia negative, hepatitis B antigen negative, hepatitis C negative, VDRL nonreactive. Her last Pap was 01/19/2016 and was within normal limits. Total weight gain is 15.5 kg. Blood pressure in the office has been ranging from 108 to 134 systolic over 62 to 72 diastolic. Diabetes screen was 145, three hour GTT was 80/106/109/83. Urine culture showed no growth. PAST MEDICAL HISTORY: 1. Endometriosis. 2. Arthritis. 3. Bone spurs. 4. Former drug abuse. MEDICATIONS: - vitamins - Macrobid - methadone 35 mg daily PAST SURGICAL HISTORY 1. Tonsillectomy in childhood. 2. In 2008, diagnostic laparoscopy with ovarian cystectomy. ALLERGIES: SULFA DRUGS, hives. SOCIAL HISTORY: The patient is , denies tobacco, alcohol, and drug use. The patient is currently on methadone. PHYSICAL EXAMINATION: VITAL SIGNS: Temperature 99, blood pressure 150/95. ABDOMEN: Gravid. Sterile vaginal examination: 1 to 2 cm/80%/-1 station. heart rate: 120 beats per minute, moderate variability, accelerations, no decelerations. [place]: Contractions every 1 to 2 minutes. ASSESSMENT AND PLAN: 1. 22-year-old 1, para 0 at 41 weeks presents for induction of labor. 2. GBS negative (no antibiotics required). 3. Anticipate spontaneous vaginal delivery secondary to induction. 4. Due to high range blood pressures on examination, preeclamptic laboratories will be ordered. My preceptor for this patient encounter was Dr. Parker. The preceptor was physically present in the building during the encounter and was fully available. As needed, all aspects of the patient interview, examination, medical decision making process, and medical care plan development were reviewed and approved by the preceptor. The preceptor is aware and concurs with the plan as stated in the body of this note and will attest to such by his/her cosignature. TINY
[2016-11-06] MEDS ORDERED: OXYTOCIN DRIP 30 UNITS in APPROPRIATE DILUENT 1 EA IV SCH (12:45)
[2016-11-06 12:53] LABS: MEAN CORPUSCULAR HEMOGLOBIN 28.3 pg (27.0-33.0); MEAN CORPUSCULAR HGB CONC 34.5 g/dl (32.0-36.5); RED CELL DISTRIBUTION WIDTH 13.6 % (11.5-14.5); WHITE BLOOD COUNT 13.4 K/mm3 (4.0-10.0)
[2016-11-06] MEDS: LR 1,000 ML IV SCH ×2 (13:41→18:25)
[2016-11-06 14:04] LABS: ALBUMIN 2.7 GM/DL (3.2-5.2); ALBUMIN/GLOBULIN RATIO 0.77 (1.00-1.93); ALKALINE PHOSPHATASE 271 U/L (45-117); ALT/SGPT 16 U/L (12-78); ANION GAP 11 MEQ/L (8-16); AST/SGOT 26 U/L (15-37); BILIRUBIN,TOTAL 0.3 MG/DL (0.2-1.0); BLOOD UREA NITROGEN 6 MG/DL (7-18); CALCIUM LEVEL 8.9 MG/DL (8.5-10.1); CARBON DIOXIDE LEVEL 21 MEQ/L (21-32); CHLORIDE LEVEL 108 MEQ/L (98-107); CREATININE FOR GFR 0.55 MG/DL (0.55-1.02); GLOMERULAR FILTRATION RATE > 60.0 (>60); GLUCOSE, FASTING 72 MG/DL (70-105); POTASSIUM SERUM 4.2 MEQ/L (3.5-5.1); SODIUM LEVEL 140 MEQ/L (136-145); TOTAL PROTEIN 6.2 GM/DL (6.4-8.2); URIC ACID 3.9 MG/DL (2.6-6.0)
[2016-11-06] MEDS ORDERED: BUTORPHANOL 2 MG/ML INJ (J0595) IV ONE (15:00)
[2016-11-06] MEDS ORDERED: PROMETHAZINE INJ 25 MG/ML VIAL (J2550) IM ONE (15:00)
[2016-11-06] MEDS ORDERED: PROMETHAZINE INJ 25 MG/ML VIAL (J2550) IV ONE (15:45)
[2016-11-06] MEDS ORDERED: FENTANYL 2MCG/ML ROPIVACAINE 0.2% IN 0.9% NACL 200ML IVBAG As Ordered ONE (17:21)
[2016-11-06] MEDS ORDERED: NALOXONE INJ 0.4 MG/1 ML VIAL (J2310) IV PRN (19:00)
[2016-11-06] MEDS ORDERED: EPIDURAL/PCA KEYS XX PRN (19:00)
[2016-11-06] MEDS ORDERED: REFRIGERATOR IV KEYS XX PRN (19:00)
[2016-11-06] MEDS ORDERED: diphenhydrAMINE INJ 50MG/ML VIAL (J1200) IV PRN (19:00)
[2016-11-06] MEDS ORDERED: EPIDURAL COMMENT XX SCH (19:00)
[2016-11-06] MEDS ORDERED: ePHEDrine SULFATE 25 MG/5 ML(5MG/ML) SYRINGE IV PRN (19:00)
[2016-11-06] MEDS ORDERED: ONDANSETRON 4MG/2ML VIAL (J2405) IV PRN (19:00)
[2016-11-06] MEDS ORDERED: FENTANYL/ROPIVACAINE/NACL BAG 200 ML EPIDURAL SCH (19:00)
[2016-11-07] VITALS (9 sets, daily range): BP systolic 124–148; BP diastolic 67–94
[2016-11-07] MEDS ORDERED: LR 1,000 ML IV SCH (00:49)
[2016-11-07] MEDS ORDERED: OXYTOCIN DRIP 30 UNITS in APPROPRIATE DILUENT 1 EA IV SCH (00:49)
[2016-11-07 00:53] LABS: CORD GAS ABE A -6.6; CORD GAS HCO3 A 20.3 MEQ/L; CORD GAS O2 SAT A 75.4 %; CORD GAS PCO2 A 48.1 mmHg; CORD GAS PH A 7.244 UNITS; CORD GAS PO2 A 37.7 mmHg; CORD GAS SBC A 18.7 MEQ/L; CORD GAS TCO2 A 21.8 MEQ/L
[2016-11-07 00:54] LABS: CORD GAS ABE V -5.9; CORD GAS HCO3 V 21.1 MEQ/L; CORD GAS O2 SAT V 64.6 %; CORD GAS PCO2 V 47.2 mmHg; CORD GAS PH V 7.268 UNITS; CORD GAS SBC V 18.9 MEQ/L; CORD GAS TCO2 V 22.5 MEQ/L
[2016-11-07] MEDS ORDERED: DOCUSATE SODIUM 100 MG CAP PO PRN (01:00)
[2016-11-07] MEDS ORDERED: IBUPROFEN 800 MG TAB PO PRN (01:00)
[2016-11-07] MEDS ORDERED: ONDANSETRON 4MG/2ML VIAL (J2405) IV PRN (01:00)
[2016-11-07] MEDS ORDERED: RHOGAM 300 MCG (1500 IU) INJ (J2790) IM SCH (01:00)
[2016-11-07] MEDS ORDERED: PROMETHAZINE 25 MG TAB PO PRN (01:00)
[2016-11-07] MEDS ORDERED: MEASLES,MUMPS,RUBELLA VACCINE INJ (MMR-II) (90707) SC SCH (01:00)
[2016-11-07] MEDS ORDERED: DIBUCAINE 1% OINTMENT 30GM TOP PRN (01:00)
[2016-11-07] MEDS: ACETAMINOPHEN 500 MG TAB PO PRN (03:40)
[2016-11-07] MEDS: PRENATAL VITAMINS CHEWABLE TABLET PO SCH (09:15)
[2016-11-07] MEDS: METHADONE 10 MG TAB (S0109) PO SCH (09:18)
[2016-11-08 06:32] VITALS: BP 106/66
[2016-11-08] MEDS: PRENATAL VITAMINS CHEWABLE TABLET PO SCH (09:15)
[2016-11-08] MEDS: METHADONE 10 MG TAB (S0109) PO SCH (09:30)
[2016-11-08] MEDS ORDERED: MOTR200T44 PO (10:35)
[2016-11-08] MEDS ORDERED: DIBU0.5O TOP (10:35)
[2016-11-08] MEDS ORDERED: COLA100C5 PO (10:35)
[2016-11-08] MEDS ORDERED: TYLE325T5 PO (10:35)
[2016-11-08] MEDS: ACETAMINOPHEN 500 MG TAB PO PRN (18:26)
[2016-11-09] MEDS: ACETAMINOPHEN 500 MG TAB PO PRN (00:33)
[2016-11-09 06:41] VITALS: BP 129/78
[2016-11-09] MEDS: METHADONE 10 MG TAB (S0109) PO SCH (08:18)
[2016-11-09] MEDS: PRENATAL VITAMINS CHEWABLE TABLET PO SCH (08:18)
[2016-11-13 14:12] LABS: GC Methadone 665 ng/mL (Cutoff=100)
== END 2016-11-09 14:44 | disposition home or self-care (01) | DRG 775 ==
LOC: M LDI 11:06 → M OBS 11-07 02:34
PROVIDERS: ADMIT Obstetrics & Gynecology; ATTEND Obstetrics & Gynecology
PROC: 3E033VJ Introduction of Other Hormone into Peripheral Vein, Percutaneous Approach (ICD-10-PCS; 2016-11-06)
PROC: 10E0XZZ Delivery of Products of Conception, External Approach (ICD-10-PCS; principal; 2016-11-07)
PROC: 0HQ9XZZ Repair Perineum Skin, External Approach (ICD-10-PCS; 2016-11-07)
PROC: 3E0234Z Introduction of Serum, Toxoid and Vaccine into Muscle, Percutaneous Approach (ICD-10-PCS; 2016-11-07)
DX: O48.0 Post-term pregnancy (principal); Z3A.41 41 weeks gestation of pregnancy; O70.0 First degree perineal laceration during delivery; Z37.0 Single live birth; Z29.13 Encounter for prophylactic Rho(D) immune globulin

== ENCOUNTER 2016-12-14 10:37 | Emergency (ER) | payer OTHER ==
[~2016-12-14] VITALS: Ht 157.5 cm; Wt 57.3 kg
[~2016-12-14 10:37] MED LIST changes: -SUBO8MIS SL
[2016-12-14] MEDS ORDERED: SUBO8MIS SL (10:58)
[2016-12-14] MEDS ORDERED: NS 1,000 ML IV ONE (11:15)
[2016-12-14] MEDS ORDERED: ONDANSETRON 4MG/2ML VIAL (J2405) IV ONE (11:15)
[2016-12-14 11:46] LABS: BASO % 0.3 % (0.0-1.0); EOS # 0.1 K/mm3 (0.0-0.50); EOS % 2.5 % (0.0-3.0); LARGE UNSTAINED CELL # 0.1 K/mm3 (0.0-0.4); LARGE UNSTAINED CELL % 1.9 % (0.0-4.0); LYMPH # 1.4 K/mm3 (1.5-6.5); MEAN CORPUSCULAR HEMOGLOBIN 27.1 pg (27.0-33.0); MEAN CORPUSCULAR HGB CONC 33.1 g/dl (32.0-36.5); MEAN CORPUSCULAR VOLUME 82.1 fl (80.0-96.0); MONO # 0.2 K/mm3 (0.0-0.8); NEUTROPHILS # 3.4 K/mm3 (1.8-7.7); NEUTROPHILS % 66.2 % (36.0-66.0); PLATELET COUNT, AUTOMATED 240 k/mm3 (150-450); RED CELL DISTRIBUTION WIDTH 12.6 % (11.5-14.5); WHITE BLOOD COUNT 5.2 K/mm3 (4.0-10.0)
[2016-12-14 12:12] LABS: ALBUMIN 4.2 GM/DL (3.2-5.2); ALBUMIN/GLOBULIN RATIO 1.11 (1.00-1.93); ALKALINE PHOSPHATASE 103 U/L (45-117); ALT/SGPT 25 U/L (12-78); ANION GAP 7 MEQ/L (8-16); AST/SGOT 26 U/L (15-37); BILIRUBIN,DIRECT 0.1 MG/DL (0.0-0.2); BILIRUBIN,TOTAL 0.3 MG/DL (0.2-1.0); BLOOD UREA NITROGEN 10 MG/DL (7-18); CALCIUM LEVEL 9.4 MG/DL (8.5-10.1); CARBON DIOXIDE LEVEL 26 MEQ/L (21-32); CHLORIDE LEVEL 110 MEQ/L (98-107); CREATININE FOR GFR 0.63 MG/DL (0.55-1.02); GLOMERULAR FILTRATION RATE > 60.0 (>60); GLUCOSE, FASTING 90 MG/DL (70-105); POTASSIUM SERUM 4.6 MEQ/L (3.5-5.1); SODIUM LEVEL 143 MEQ/L (136-145)
[2016-12-14 12:49] VITALS: BP 98/61
== END 2016-12-14 13:32 | disposition home or self-care (01) ==
LOC: M ED 10:37
DX: R11.0 Nausea (principal); R53.83 Other fatigue; Z87.891 Personal history of nicotine dependence; Z87.442 Personal history of urinary calculi; Z87.42 Personal history of other diseases of the female genital tract; Z87.898 Personal history of other specified conditions; Z79.899 Other long term (current) drug therapy; Z88.2 Allergy status to sulfonamides
CPT/HCPCS: 80048; 80076; 81001; 85025; 96361; 96374; 99283; J2405

== ENCOUNTER → 2017-02-12 | Outpatient (CLI) | payer OTHER ==
[~2017-02-12] MED LIST changes: +SUBO8MIS SL
[2017-02-12 20:32] LABS: ALBUMIN 4.4 GM/DL (3.2-5.2); ALBUMIN/GLOBULIN RATIO 1.29 (1.00-1.93); ALKALINE PHOSPHATASE 83 U/L (45-117); ALT/SGPT 20 U/L (12-78); ANION GAP 5 MEQ/L (8-16); AST/SGOT 16 U/L (7-37); BILIRUBIN,TOTAL 0.5 MG/DL (0.2-1.0); BLOOD UREA NITROGEN 12 MG/DL (7-18); CALCIUM LEVEL 9.1 MG/DL (8.5-10.1); CARBON DIOXIDE LEVEL 27 MEQ/L (21-32); CHLORIDE LEVEL 104 MEQ/L (98-107); GLOMERULAR FILTRATION RATE > 60.0 (>60); GLUCOSE, FASTING 73 MG/DL (70-105); POTASSIUM SERUM 4.4 MEQ/L (3.5-5.1); SODIUM LEVEL 136 MEQ/L (136-145); TOTAL PROTEIN 7.8 GM/DL (6.4-8.2)
[2017-02-12 20:42] LABS: BASO % 0.3 % (0.0-1.0); EOS # 0.2 10^3/uL (0.0-0.50); EOS % 2.3 % (0.0-3.0); IMMATURE GRANULOCYTE % 0.2 % (0-0); LYMPH # 2.6 10^3/uL (1.5-6.5); LYMPH % 29.1 % (24.0-44.0); MEAN CORPUSCULAR HEMOGLOBIN 26.8 pg (27.0-33.0); MEAN CORPUSCULAR HGB CONC 32.9 g/dl (32.0-36.5); MEAN CORPUSCULAR VOLUME 81.3 fl (80.0-96.0); MONO # 0.3 10^3/uL (0.0-0.8); MONO % 3.8 % (0.0-5.0); NEUTROPHILS # 5.8 10^3/uL (1.8-7.7); NEUTROPHILS % 64.3 % (36.0-66.0); PLATELET COUNT, AUTOMATED 269 10^3/uL (150-450); RED CELL DISTRIBUTION WIDTH 12.3 % (11.5-14.5)
== END ==
LOC: M WUC 16:02
PROVIDERS: ATTEND Physician Assistant
DX: R53.83 Other fatigue (principal)

== ENCOUNTER → 2017-02-12 | Outpatient (REF) | payer OTHER | LOC: M LAB REF 09:54 | PROVIDERS: ATTEND Physician Assistant | DX: R11.2 Nausea with vomiting, unspecified (principal) ==

== ENCOUNTER 2017-07-30 19:34 | Emergency (ER) | payer OTHER ==
[2017-07-31] MEDS: CETACAINE SPRAY 5GM TOP
[2017-07-31] MEDS: BUPIVACAINE HCL 0.5% 10 ML VIAL SC
[2017-07-31] MEDS: LIDOCAINE 2% W/EPIN INJ 20ML **PRES FREE INJ
== END 2017-07-31 00:31 | disposition home or self-care (01) ==
LOC: M ED 07-31 00:31
DX: K08.89 Other specified disorders of teeth and supporting structures (principal); Z79.891 Long term (current) use of opiate analgesic; Z88.1 Allergy status to other antibiotic agents; Z88.2 Allergy status to sulfonamides
CPT/HCPCS: 64400

== ENCOUNTER → 2017-11-20 | Outpatient (CLI) | payer OTHER ==
[2017-11-20 18:26] LABS: BASO % 0.4 % (0.0-1.0); EOS # 0.2 10^3/uL (0.0-0.50); EOS % 3.5 % (0.0-3.0); HEMATOCRIT 40.6 % (36.0-47.0); HEMOGLOBIN 13.6 g/dl (12.0-15.5); IMMATURE GRANULOCYTE % 0.1 % (0-3.0); LYMPH # 2.2 10^3/uL (1.5-6.5); LYMPH % 32.4 % (24.0-44.0); MEAN CORPUSCULAR HEMOGLOBIN 27.9 pg (27.0-33.0); MEAN CORPUSCULAR HGB CONC 33.5 g/dl (32.0-36.5); MEAN CORPUSCULAR VOLUME 83.2 fl (80.0-96.0); MONO # 0.3 10^3/uL (0.0-0.8); MONO % 4.8 % (0.0-5.0); NEUTROPHILS # 4.1 10^3/uL (1.8-7.7); NEUTROPHILS % 58.8 % (36.0-66.0); PLATELET COUNT, AUTOMATED 197 10^3/uL (150-450); RED BLOOD COUNT 4.88 10^6/uL (4.00-5.40); RED CELL DISTRIBUTION WIDTH 11.5 % (11.5-14.5); WHITE BLOOD COUNT 6.9 10^3/uL (4.0-10.0)
[2017-11-20 19:16] LABS: ALBUMIN 4.1 GM/DL (3.2-5.2); ALBUMIN/GLOBULIN RATIO 1.24 (1.00-1.93); ALKALINE PHOSPHATASE 54 U/L (45-117); ALT/SGPT 15 U/L (12-78); ANION GAP 9 MEQ/L (8-16); AST/SGOT 18 U/L (7-37); BILIRUBIN,TOTAL 0.5 MG/DL (0.2-1.0); BLOOD UREA NITROGEN 13 MG/DL (7-18); CALCIUM LEVEL 8.9 MG/DL (8.5-10.1); CARBON DIOXIDE LEVEL 26 MEQ/L (21-32); CHLORIDE LEVEL 106 MEQ/L (98-107); CREATININE FOR GFR 0.53 MG/DL (0.55-1.30); FREE T4 0.94 NG/DL (0.76-1.46); GLOMERULAR FILTRATION RATE > 60.0 (>60); GLUCOSE, FASTING 74 MG/DL (70-100); IRON (FE) 114 UG/DL (50-170); PERCENT SATURATION 35.4 % (13.2-45.0); POTASSIUM SERUM 4.2 MEQ/L (3.5-5.1); SODIUM LEVEL 141 MEQ/L (136-145); THYROID STIMULATING HORMONE 0.562 uIU/ML (0.358-3.740); TOTAL IRON BINDING CAPACITY 322 UG/DL (250-450); TOTAL PROTEIN 7.4 GM/DL (6.4-8.2)
== END ==
LOC: M WUC 15:16
DX: R53.83 Other fatigue (principal)
CPT/HCPCS: 83550

== ENCOUNTER → 2018-01-29 | Outpatient (REF) | payer OTHER | LOC: M SFHCLERA 11:30 | DX: J02.9 Acute pharyngitis, unspecified (principal) ==